=== PATIENT | male | born 1985 | race Hispanic/Latino ===

== ENCOUNTER → 2018-07-01 | Day surgery (SDC) | payer OTHER ==
[~2018-07-01] MED LIST: FENTANYL CITRATE/PF 100MCG/2 ML INJ ONE; MIDAZOLAM HCL 2 MG/2 ML VIAL ONE; PROPOFOL IV EMULSION 10 MG/ML 50 ML VIAL ONE
--- NOTE | 2018-07-01 07:10 | NUR ---
SPIRITUAL CARE - Pre-Surgery Assessment: Pt in bed. Pt's mom at bedside. Pt reported supportive attention from family and friends. Intervention: I provided pastoral presence, hospitality, and sympathetic listening. I acquainted pt with availability of fourth mate while hospitalized. Outcome: Pt expressed appreciation for visit. No need for follow up indicated at this time. ABRA[facility] Spiritual Care Department O: [phone] Pager: [phone] ([phone] number calling from)
[2018-07-01 08:30] VITALS: BP 114/83
--- NOTE | 2018-07-01 08:39 | Operative Report ---
DATE OF PROCEDURE: July 01, 2018 REFERRING PHYSICIAN: Dr. Emma Sanchez PROCEDURE PERFORMED: Esophagogastroduodenoscopy with biopsies. INDICATIONS FOR EGD: History of heartburn and indigestion. MEDICATION: Patient was done under MAC. Please see anesthesiologist's note. PROCEDURE: With the patient in the left lateral decubitus position, the flexible fiberoptic Olympus gastroscope was introduced into the esophagus under direct visualization without any difficulty. There was some patchy erythema noted in the distal esophagus. The scope was then advanced with ease into the stomach, and mucosa overlying the antrum and the body revealed some patchy erythema and low-grade edema, and biopsies were obtained and sent to stain for H. pylori. Pylorus was of normal contour and shape. It was intubated with ease. The scope was advanced all the way to the 2nd portion of the duodenum. Biopsies were obtained from the proximal 2nd portion to rule out sprue as the folds appeared somewhat flattened. The scope was then withdrawn back into the stomach and retroflexed. The mucosa overlying the fundus and the cardia appeared to be within normal limits. The scope was then straightened out. It was subsequently withdrawn. Patient tolerated the procedure well. IMPRESSION 1. Mild distal esophagitis. 2. Gastritis, biopsied. Biopsies sent to stain for Helicobacter pylori. 3. Rule out sprue. PLAN: Follow up histology. Initiate Protonix 40 mg 1 p.o. q.a.m. a.c. Job#: [id number] RI cc:EMMA SANCHEZ MD
== END | disposition home or self-care (01) ==
LOC: ENDO 05:12
PROVIDERS: ATTEND Internal Medicine Gastroenterology
DX: K20.9 Esophagitis, unspecified (principal); K29.50 Unspecified chronic gastritis without bleeding; K31.9 Disease of stomach and duodenum, unspecified; K80.20 Calculus of gallbladder without cholecystitis without obstruction
CPT/HCPCS: 43239; J2250; J2704

== ENCOUNTER → 2018-08-26 | Outpatient (CLI) | payer OTHER ==
--- NOTE | 2018-08-26 19:32 | Diagnostic Imaging Report ---
Hepatobiliary Scan with Gallbladder Ejection Fraction Clinical information: 33 M with intermittent epigastric pain; cholelithiasis x 2 years. Technique: Following intravenous administration of 7 millicuries of Tc-99m mebrofenin, dynamic images of the abdomen in the anterior projection were obtained through 60 minutes. An additional static image was obtained at 90 minutes. Sincalide (CCK analog) 1.6 micrograms was administered intravenously over 30 minutes with additional imaging for determination of gallbladder ejection fraction. Discussion: Perfusion of the liver is normal. Extraction of tracer by the liver parenchyma is normal. Tracer appears promptly within the biliary tract. The gallbladder begins to fill at 40 minutes post injection of tracer and fills adequately. Tracer is seen in the small bowel by 13 minutes. There is no contractile response by the gallbladder to the pharmacologic dose of sincalide. No emptying of the gallbladder occurs during the 30 minute infusion. Impression: 1. Filling of the gallbladder excludes acute cystic duct obstruction/acute cholecystitis. 2. The gallbladder ejection fraction is undefined as there is no emptying of the gallbladder during the infusion of sincalide. This absence of a contractile response to sincalide supports the clinical diagnosis of chronic cholecystitis/gallbladder dyskinesia. Signed by: Dr. Clarissa Baker M.D. on 08/26/2018 7:29 PM
== END ==
LOC: NM 10:42
PROVIDERS: ATTEND Internal Medicine Gastroenterology
DX: R10.13 Epigastric pain (principal); K80.60 Calculus of gallbladder and bile duct with cholecystitis, unspecified, without obstruction
CPT/HCPCS: 78227; A9537

== ENCOUNTER → 2018-09-23 | Day surgery (SDC) | payer OTHER ==
[2018-09-16 16:13] LABS: CLARITY,URINE SL CLOUDY (CLEAR); COLOR,URINE YELLOW (YELLOW); LEUKOCYTE ESTERASE ,URINE NEGATIVE (NEGATIVE); NITRITE,URINE NEGATIVE (NEGATIVE); PROTEIN,URINE DIPSTICK NEGATIVE (NEGATIVE)
[2018-09-16 16:14] LABS: BILIRUBIN,URINE NEGATIVE (NEGATIVE); KETONES,URINE TRACE (NEGATIVE); URINE UROBILINOGEN 0.2 mg/dL (0.2 - 1)
[2018-09-16 16:17] LABS: HEMATOCRIT 42.3 % (38.2-49.6); HEMOGLOBIN 14.1 g/dL (14.0-18.0); LYMPHOCYTES % 1.2 % (18.0-39.1); MEAN CORPUSCULAR HGB CONC 33.3 g/dL (31-35); MONOCYTES % 0.4 % (4.4-11.3); NEUTROPHILS % 4.7 % (38.7-80.0); PLATELET COUNT 190 x10e3/uL (140-360); RED BLOOD COUNT 5.22 x10e6/uL (4.3-5.7); RED CELL DISTRIBUTION WIDTH 13.4 % (11.7-14.4)
[2018-09-16 16:18] LABS: EOSINOPHILS % 0.1 % (0.0-6.0)
[2018-09-16 17:27] LABS: CHLORIDE 106 mmol/L (98-107); POTASSIUM 3.4 mmol/L (3.5-5.1); SODIUM 140 mmol/L (136-145)
[2018-09-16 17:30] LABS: ALBUMIN 4.4 g/dL (3.5-5.0); ALBUMIN/GLOBULIN RATIO 1.3 (0.8-2.0); CALCIUM 9.3 mg/dL (8.4-10.2); GLUCOSE 93 mg/dL (74-118)
[2018-09-16 17:36] LABS: ALANINE AMINOTRANSFERASE 40 IU/L (0-55); ALKALINE PHOSPHATASE 84 IU/L (40-150); ANION GAP 12.4 mmol/L (8-16); BLOOD UREA NITROGEN 18 mg/dL (7-26); BUN/CREATININE RATIO 16 (6-25); CARBON DIOXIDE 25 mmol/L (22-29); CREATININE, SERUM 1.16 mg/dL (0.72-1.25); EST GLOMERULAR FILTRATION RATE > 60 ML/MIN (60-)
[~2018-09-23] MED LIST changes: +ACETAMINOPHEN 1000 MG/100 ML IV ONE; +BUPIVACAINE 0.25%/EPI 30ML SDV INJ ONE; +DEXAMETHASONE SOD PHOS INJ 4 MG/ML VIAL ONE; +FISH OIL 1,0001 EAC2 PO; +LIDOCAINE HCL 2% LOCAL INJ 5 ML SDV VIAL INJ ONE; +MEPERIDINE HCL INJ 25 MG/ML VIAL ONE; +MULTI-VITAMIN1 EACH PO; +ONDANSETRON HCL INJ 2MG/ML 2ML 2 MG/ML VIAL ONE; +PROPOFOL IV EMULSION 10 MG/ML 20 ML VIAL ONE; -PROPOFOL IV EMULSION 10 MG/ML 50 ML VIAL ONE; +ROCURONIUM BROMIDE 10 MG/ML 5ML VIAL ONE; +SEVOFLURANE INHAL SOLN 250 ML PEN BTL ONE
--- OUTSIDE RECORDS SUMMARY | 2018-09-23 08:45 | XMS REPORT ---
Author Author [facility] Address Unknown Phone Unavailable Care Team Providers Care Tooling Engineer Name Role Phone ROMA MAMI Unavailable Unavailable Problems This patient has no known problems. Allergies, Adverse Reactions, Alerts This patient has no known allergies or adverse reactions. Medications This patient has no known medications. Results Test Description Test Time Test Comments Text Results Atomic Results Result Comments HEPTOBILIARY W PHARM 2018-08-26 19:26:00 [place] [address] Patient Name: CRICKET ROSEN MR #: [id number] : 1985 Age/Sex: 33/M Req #: [id number] [facility] [place] Physician: Ordered by: MAMI BRANDON MD Report #: [id number] Location: [place] Room/Bed: Procedure: [id number] NM/HEPTOBILIARY W PHARM Exam Date: 08/26/18 Exam Time: 1145 REPORT STATUS: Signed Hepatobiliary Scan with Gallbladder Ejection Fraction Clinical information: 33 M with intermittent epigastric pain; cholelithiasis x 2 years. Technique: Following intravenous administration of 7 millicuries of Tc-99m mebrofenin, dynamic images of the abdomen in the anterior projection were obtained through 60 minutes. An additional static image was obtained at 90 minutes. Sincalide (CCK analog) 1.6 micrograms was administered intravenously over 30 minutes with additional imaging for determination of gallbladder ejection fraction. Discussion: Perfusion of the liver is normal. Extraction of tracer by the liver parenchyma is normal. Tracer appears promptly within the biliary tract. The gallbladder begins to fill at 40 minutes post injection of tracer and fills adequately. Tracer is seen in the small bowel by 13 minutes. There is no contractile response by the gallbladder to the pharmacologic dose of sincalide. No emptying of the gallbladder occurs during the 30 minute infusion. Impression: 1. Filling of the gallbladder excludes acute cystic duct obstruction/acute cholecystitis. 2. The gallbladder ejection fraction is undefined as there is no emptying of the gallbladder during the infusion of sincalide. This absence of a contractile response to sincalide supports the clinical diagnosis of chronic cholecystitis/gallbladder dyskinesia. Signed by: Dr. Malgorzata Don M.D. on 08/26/2018 7:29 PM Dictated By: MALGORZATA DON MD 28 Transcribed By: SYD on 08/26/181928 COPY TO: MAMI BRANDON MD
[2018-09-23 16:00] VITALS: BP 140/80
--- NOTE | 2018-09-23 21:03 | Operative Report ---
DATE OF PROCEDURE: 09/23/2018 SURGEON: Emmett Whalen MD PREOPERATIVE DIAGNOSES: Cholecystitis and cholelithiasis. POSTOPERATIVE DIAGNOSES: Cholecystitis and cholelithiasis. OPERATION PERFORMED: Laparoscopic cholecystectomy. ASSISTANTS: 1. Dr. Tomy Whalen. 2. TIFFANY Quinones. ANESTHESIA: General. COMPLICATIONS: None. ESTIMATED BLOOD LOSS: Minimal. DESCRIPTION OF PROCEDURE: When the patient was lying in bed in the supine position under good general endotracheal anesthesia, the abdomen was prepped with Betadine solution and draped in the usual manner. A Veress needle was introduced into the umbilicus and pneumoperitoneum was established without any difficulty. An 11 mm trocar was placed into the umbilicus and a 10 mm videolaparoscope was placed into the intraabdominal cavity. Under direct vision, three 5 mm trocars were placed in the right subcostal region. Video laparoscopy at this point revealed a gallbladder that was partially intrahepatic and was totally full of stones with at least one large stone stuck in the top of the gallbladder. The rest of the abdominal exploration was within normal limits. The peritoneum overlying the neck of the gallbladder was then opened and the cystic duct was identified. The cystic duct was followed to its junction with the common duct. The cystic duct was then circumferentially dissected away from the common duct, doubly clipped and divided. The cystic artery had an anterior and a posterior branch and both of this were individually clipped and divided. The gallbladder was then slowly and carefully taken off the liver bed and perfect hemostasis was ascertained. The gallbladder was placed in a pouch and removed through the umbilicus after enlarging the umbilical incision to allow for passage of the large stones that were present. Video laparoscopy was then again carried out. The liver bed was found to be perfectly dry. All of the excess fluid was aspirated. The pneumoperitoneum was evacuated and all the trocars were removed under direct vision. The midline fascia of the umbilicus was then closed with two [id number]-ad-mhydy of 0 Vicryl. All layers were infiltrated on the way out with solution of 0.25% Marcaine. Subcutaneous tissue was approximated with 3-0 Vicryl and the skin was closed with subcuticular 5-0 Vicryl. Benzoin, Steri-Strips, and Band-Aids were applied. The sponge, lap, and needle count was correct. The patient tolerated the procedure well and returned to the recovery room in stable condition. MD AN Yuen/TYRELL /[id number]
== END | disposition home or self-care (01) ==
LOC: OR 08:42
PROVIDERS: ATTEND Surgery
DX: K80.10 Calculus of gallbladder with chronic cholecystitis without obstruction (principal); Z01.812 Encounter for preprocedural laboratory examination
CPT/HCPCS: 36415; 47562; 80053; 81003; 85025; 88304; C1766; J0131; J1100; J2001; J2175; J2250; J2405; J2704